=== PATIENT | female | born 1960 ===

== ENCOUNTER 2024-02-26 15:32 | Outpatient (REF) | payer BC, SELFPAY ==
[2024-02-26 15:33] LABS: Influenza A PCR Negative (Negative); Influenza B PCR Negative (Negative); RSV PCR Negative (Negative)
[2024-02-26 15:34] LABS: COVID-19 PCR Positive (Negative); Source Nasopharynx
== END 2024-02-26 15:33 | disposition home or self-care (01) ==
LOC: LBN 15:32
PROVIDERS: Visit Provider Physician Assistant Medical
DX: B34.9 Viral infection, unspecified (principal)
CPT/HCPCS: 87637